=== PATIENT | female | born 1975 | race Caucasian/White ===

== ENCOUNTER 2020-11-10 12:32 | Observation (INO) | payer MEDICARE, OTHER ==
[~2020-11-10] VITALS: Ht 160 cm; Wt 95.3 kg
[~2020-11-10 12:32] MED LIST: ASPIR 8181 MG PO; NITROSTAT0.4 MG SL
[2020-11-10 14:00] LABS: HEMOGLOBIN 13.9 gm/dl (12.3-15.3); RED BLOOD COUNT 4.32 M/UL (4.00-5.10); WHITE BLOOD COUNT 7.6 K/UL (4.5-11.0)
[2020-11-10 14:17] LABS: BUN/CREATININE RATIO 14 (0-10)
[2020-11-10] MEDS ORDERED: FLOMAX0.4 MG PO (23:19)
[2020-11-10] MEDS ORDERED: ATORVASTATIN CA40 MG PO (23:19)
[2020-11-10] MEDS ORDERED: MULTI-VITAMIN1 EACH PO (23:19)
[2020-11-10] MEDS ORDERED: ZOLOFT50 MG PO (23:20)
[2020-11-10] MEDS ORDERED: DOXEPIN HCL25 MG PO (23:21)
[2020-11-10] MEDS ORDERED: ALL DAY ALLERGY10 M2 PO (23:21)
[2020-11-10] MEDS ORDERED: OMEPRAZOLE20 M1 PO (23:22)
[2020-11-10] MEDS ORDERED: STOOL SOFTENER1 EAC2 PO (23:28)
[2020-11-10] MEDS ORDERED: SENOKOT-S TABL1 EACH PO (23:28)
[2020-11-11 04:59] LABS: HEMOGLOBIN 12.7 gm/dl (12.3-15.3); RED BLOOD COUNT 3.99 M/UL (4.00-5.10); WHITE BLOOD COUNT 5.7 K/UL (4.5-11.0)
[2020-11-11 05:18] LABS: BUN/CREATININE RATIO 11 (0-10)
[2020-11-11] MEDS ORDERED: DITROPAN XL 5 MG5 MG PO (23:22)
[2020-11-12 06:41] LABS: HEMOGLOBIN 13.2 gm/dl (12.3-15.3); RED BLOOD COUNT 4.17 M/UL (4.00-5.10); WHITE BLOOD COUNT 5.1 K/UL (4.5-11.0)
[2020-11-12 07:35] LABS: BUN/CREATININE RATIO 10 (0-10)
[2020-11-12] MEDS ORDERED: TORADOL 10 MG T10 MG PO (11:28)
[2020-11-12] MEDS ORDERED: METFORMIN HCL500 MG PO (11:29)
--- NOTE | 2020-11-12 12:10 | NUR ---
INSTRUCTED PATIENT TAKE ALL MEDS ORDERED . METFORMIN FOR B/S STABILITY. TORADOL FOR PAIN. KEEP FOLLOW UP APPOINTMENT. VERBALIZED UNDERSTANDING, LUIS CARLOS MATHEW R.N.
== END 2020-11-12 19:42 | disposition home or self-care (01) ==
LOC: ER1 12:32 → CDU 17:04 → MED SURG 4 23:03
PROVIDERS: Emergency Medicine; ADMIT Internal Medicine
DX: K85.90 Acute pancreatitis without necrosis or infection, unspecified (principal); K21.9 Gastro-esophageal reflux disease without esophagitis; K58.1 Irritable bowel syndrome with constipation; R73.03 Prediabetes; E78.5 Hyperlipidemia, unspecified; G89.29 Other chronic pain; M54.9 Dorsalgia, unspecified; J30.2 Other seasonal allergic rhinitis; F32.9 Major depressive disorder, single episode, unspecified; F41.9 Anxiety disorder, unspecified; F17.210 Nicotine dependence, cigarettes, uncomplicated; N28.89 Other specified disorders of kidney and ureter; Z20.822 Contact with and (suspected) exposure to COVID-19; Z90.49 Acquired absence of other specified parts of digestive tract; Z90.710 Acquired absence of both cervix and uterus; Z98.890 Other specified postprocedural states; Z87.442 Personal history of urinary calculi
CPT/HCPCS: 36415; 80048; 80053; 80061; 80307; 81001; 83036; 83690; 83735; 84100; 84703; 85025; 85652; 86140; 93005; 96372; 96374; 96375; 96376; 99285; G0378; J1170; J1650; J2405; J7030; J7120; Q9967; U0002

== ENCOUNTER → 2020-12-01 | Outpatient (CLI) | payer MEDICARE, OTHER ==
[~2020-12-01] MED LIST changes: +ALL DAY ALLERGY10 M2 PO; +ATORVASTATIN CA40 MG PO; +DITROPAN XL 5 MG5 MG PO; +DOXEPIN HCL25 MG PO; +FLOMAX0.4 MG PO; +METFORMIN HCL500 MG PO; +MULTI-VITAMIN1 EACH PO; +OMEPRAZOLE20 M1 PO; +SENOKOT-S TABL1 EACH PO; +STOOL SOFTENER1 EAC2 PO; +TORADOL 10 MG T10 MG PO; +ZOLOFT50 MG PO
== END ==
LOC: KOH-I 14:37
DX: M25.572 Pain in left ankle and joints of left foot (principal); M79.672 Pain in left foot
CPT/HCPCS: 73610; 73630

== ENCOUNTER → 2020-12-16 | Outpatient (CLI) | payer MEDICARE, OTHER | LOC: KOH-I 12-11 10:00 | DX: M25.572 Pain in left ankle and joints of left foot (principal); G89.29 Other chronic pain; M19.072 Primary osteoarthritis, left ankle and foot; Z98.1 Arthrodesis status | CPT/HCPCS: 73700 ==